=== PATIENT | female | born 1990 | race Caucasian/White ===

== ENCOUNTER 2018-04-17 20:26 | Emergency (ER) | payer BC ==
[~2018-04-17] VITALS: Ht 160 cm; Wt 54.2 kg
[2018-04-17 20:35] VITALS: BP 132/83
--- NOTE | 2018-04-17 20:40 | NUR ---
PT ASSISTED BACK TO LOBBY . PT IN STABLE CONDITION.
--- NOTE | 2018-04-17 21:57 | NUR ---
PT TAKEN TO BED 4
--- NOTE | 2018-04-17 22:00 | NUR ---
PT COMES TO ER WITH C/O PRUITIS FROM BUG BITES TO MID BACK AND BILATERAL ARMS. PT AAO X4 AMB @ BEDSIDE. S1 S2 NO EDEMA NOTED. PT DENIES CP, SOB @ THIS TIME. LUNGS CLEAR TO AUSCULTATION. ABD SOFT NON DISTENDED. DENIES N/V. PT VOIDING. NO OTHER S/S OF DISTRESS NOTED. WILL CONTINUE TO OBSERVE.
--- NOTE | 2018-04-17 22:05 | NUR ---
PT STATED SHE HAD X1 EPISODE OF DIZZINESS AFTER BUG BITES. DENIES DIZZINESS, NUMBNESS TINGLING @ THIS TIME. NO OTHER ACUTE S/S OF DISTRESS NOTED. WILL CONTINUE TO OBSERVE.
[2018-04-17] MEDS ORDERED: predniSONE 20 MG TAB PO ONE (23:05)
[2018-04-17 23:15] VITALS: BP 117/84
--- NOTE | 2018-04-17 23:15 | NUR ---
Patient discharged with v/s stable. Written and verbal after care instructions given and explained. Patient alert, oriented and verbalized understanding of instructions. Ambulatory with steady gait. All questions addressed prior to discharge. ID band removed. Patient advised to follow up with PMD. Rx of BACTERECIN OINTMENT, PREDNISONE 20 MG, BENADRYL 25 MG given. Patient educated on indication of medication including possible reaction and side effects. Opportunity to ask questions provided and answered.
== END 2018-04-17 23:15 | disposition home or self-care (01) ==
LOC: MED 20:26
DX: T63.481A Toxic effect of venom of other arthropod, accidental (unintentional), initial encounter (principal); L50.9 Urticaria, unspecified; Y92.89 Other specified places as the place of occurrence of the external cause
CPT/HCPCS: 99283; J7512; Q0163